=== PATIENT | male | born 1960 | race Caucasian/White ===

== ENCOUNTER 2021-08-22 07:59 | Day surgery (SDC) | payer OTHER ==
[2021-08-20 09:18] VITALS: BMI 25.8
[2021-08-22] MEDS ORDERED: PROPOFOL 20 ML ONE ×2 (08:45)
[2021-08-22 09:28] VITALS: TEMP 97
[2021-08-22 09:44] VITALS: BP 110/60; PULSE 66
== END 2021-08-22 10:00 | disposition home or self-care (01) ==
LOC: FASU-ENDO 07:59
PROVIDERS: ATTEND Internal Medicine Gastroenterology
PROC: 0DJD8ZZ Inspection of Lower Intestinal Tract, Via Natural or Artificial Opening Endoscopic (ICD-10-PCS; principal; 2021-08-22 08:58)
DX: Z12.11 Encounter for screening for malignant neoplasm of colon (principal)